=== PATIENT | male | born 1990 | race Caucasian/White ===

== ENCOUNTER 2021-04-29 11:36 | Emergency (ER) | payer OTHER ==
[~2021-04-29] VITALS: Ht 177.8 cm; Wt 95.3 kg
--- NOTE | 2021-04-29 12:12 | NUR ---
LILIBETH and Law to bedside for eval.
[2021-04-29] MEDS ORDERED: methylPREDNISolone SOD SUCC 125 MG/2 ML IVPush ONE (12:30)
[2021-04-29] MEDS ORDERED: SODIUM CHLORIDE FLUSH 10ML SYR IVF ONE (12:30)
[2021-04-29] MEDS ORDERED: LIDOCAINE 2%, 10ML INFIL ONE (12:30)
[2021-04-29] MEDS ORDERED: LIDOCAINE-MPF 1%, 5ML ONE (12:31)
[2021-04-29] MEDS ORDERED: BENZOCAINE AEROSOL SPRAY 20%, 60ML ONE (12:32)
[2021-04-29] MEDS ORDERED: AMPICILLIN/SULBACTAM 3 GM in SODIUM CHLORIDE 0.9% 100 ML IV ONE (13:00)
[2021-04-29] MEDS ORDERED: methylPREDNISolone SOD SUCC 125 MG/2 ML ONE (13:12)
--- NOTE | 2021-04-29 13:39 | NUR ---
BREAK RN::PT SITTING UP ON BED ON PHONE. NO DISTRESS NOTED AT THIS TIME. WILL CONTINUE TO MONITOR.
[2021-04-29 14:09] VITALS: BP 142/56
--- NOTE | 2021-04-29 14:17 | NUR ---
Pt presents to the ER for R side tonsil pain. Pt states he's been taking a "z-pack" as prescribed without relief.
== END 2021-04-29 14:11 | disposition home or self-care (01) ==
LOC: ED 11:56
DX: J36 Peritonsillar abscess (principal); F17.210 Nicotine dependence, cigarettes, uncomplicated
CPT/HCPCS: 42999; 96365; 96375; 99284; J0295; J2930